=== PATIENT | female | born 1970 | race Hispanic/Latino ===

== ENCOUNTER 2023-01-16 11:49 | Emergency (ER) | payer BC ==
[2023-01-16] MEDS ORDERED: predniSONE 20 MG TAB ONE (13:53)
[2023-01-16] MEDS ORDERED: FAMOTIDINE 20 MG TAB ONE (13:53)
[2023-01-16] MEDS ORDERED: DIPHENHYDRAMINE 25 MG TAB/CAP ONE (13:53)
--- NOTE | 2023-01-16 13:56 | ER ---
Nurse's Notes [facility] Name: Silva Hidalgo Age: 52 yrs Sex: Female : 1970 Arrival Date: 01/16/2023 Time: 11:49 Bed 10 Private MD: Diagnosis: Allergy, unspecified;Other allergy;Allergic contact dermatitis due to other agents Presentation: 01/16 12:14 Chief complaint: Patient states: Right hand swelling/redness along with itching on both [facility] extremities and trunk area since yesterday. Coronavirus screen: Vaccine status: Patient reports receiving the 2nd dose of the covid vaccine. Ebola Screen: Patient denies travel to an Ebola-affected area in the 21 days before illness onset. Initial Sepsis Screen: Does the patient meet any 2 criteria? No. Patient's initial sepsis screen is negative. Does the patient have a suspected source of infection? No. Patient's initial sepsis screen is negative. Risk Assessment: Do you want to hurt yourself or someone else? Patient reports no desire to harm self or others. Onset of symptoms was January 15, 2023. 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 - Social history:: Smoking status: Patient denies any tobacco usage or history of. Screenin:37 [facility] ED Fall Risk Assessment (Adult) History of falling in the last 3 months, mb9 including since admission No falls in past 3 months (0 pts) Confusion or Disorientation No (0 pts) Intoxicated or Sedated No (0 pts) Impaired Gait No (0 pts) Mobility Assist Device Used No (0 pt) Altered Elimination No (0 pt) Score/Fall Risk Level 0 - 2 = Low Risk Oriented to surroundings, Maintained a safe environment, Educated pt \T\ family on fall prevention, incl call for assistance when getting out of bed. Abuse screen: Denies threats or abuse. Nutritional screening: No deficits noted. Tuberculosis screening: No symptoms or risk factors identified. Assessment: 13:35 General: Appears uncomfortable, Behavior is cooperative. Pain: Denies pain. Neuro: mb9 Payne Agitation-Sedation Scale (RASS): 0 - Alert and Calm Level of Consciousness is awake, alert, obeys commands, Oriented to person, place, time, situation, Appropriate for age. Cardiovascular: Heart tones S1 S2 present Patient's skin is warm and dry. Rhythm is regular. Respiratory: Airway is patent Respiratory effort is even, unlabored, Respiratory pattern is regular, symmetrical, Breath sounds are clear bilaterally. Denies shortness of breath. GI: No signs and/or symptoms were reported involving the gastrointestinal system. : No signs and/or symptoms were reported regarding the genitourinary system. EENT: No signs and/or symptoms were reported regarding the EENT system. Derm: Rash noted that is itchy, red, on buttocks, abdomen, right hand, left hand, right arm and left arm. Musculoskeletal: Range of motion: intact in all extremities, Swelling present in right hand. 14:08 Reassessment: Patient and/or family updated on plan of care and expected duration. Pain mb9 level reassessed. Patient is alert, oriented x 3, equal unlabored respirations, skin warm/dry/pink. Patient states feeling better. Patient states symptoms have improved. Vital Signs: 12:14 BP 115 / 85; Pulse 77; Resp 16; Temp 98.6; Pulse Ox 100% ; Weight 63.05 kg; Height 5 nj1 ft. 6 in. ; Pain 7/10; 14:08 BP 116 / 84; Pulse 74; Resp 18; Pulse Ox 100% on R/A; mb9 12:14 Body Mass Index 22.43 (63.05 kg, 167.64 cm) nj1 12:14 Pain Scale: Adult in1 ED Course: 11:52 Patient arrived in ED. mr 12:10 Goran Aguilera MD is Attending Physician. [facility] 12:16 Triage completed. nj1 12:17 Arm band placed on left wrist. nj1 13:34 Brianna Foley RN is Primary Nurse. mb9 13:35 Placed in gown. Bed in low position. Call light in reach. Side rails up X 1. Client mb9 placed on continuous cardiac and pulse oximetry monitoring. NIBP monitoring applied. 14:08 No provider procedures requiring assistance completed. Patient did not have IV access mb9 during this emergency room visit. Administered Medications: 13:51 Drug: diphenhydrAMINE PO 50 mg Route: PO; mb9 13:51 Drug: Famotidine PO 40 mg Route: PO; mb9 13:51 Drug: predniSONE PO 60 mg Route: PO; mb9 Medication: 13:35 VIS not applicable for this client. mb9 Outcome: 13:55 Discharge ordered by . yuliana 14:09 Discharged to home ambulatory. mb9 14:09 Condition: stable 14:09 Discharge instructions given to patient, Instructed on discharge instructions, follow up and referral plans. Demonstrated understanding of instructions, follow-up care, medications, Prescriptions given X 3. 14:09 Patient left the ED. mb9 Signatures: Goran Aguilera MD MD cha Rivera, Mary mr Foley, Brianna Angel, RN RN mb9 Gwen El RN RN nj1
--- NOTE | 2023-01-16 13:56 | EDPHYS ---
Physician Documentation [facility] Name: Silva Hidalgo Age: 52 yrs Sex: Female : 1970 Arrival Date: 01/16/2023 Time: 11:49 Bed 10 Private MD: ROYA Physician Goran Aguilera HPI: 01/16 13:48 This 52 yrs old Female presents to ER via Ambulatory with complaints of Hand yuliana Swelling. 13:48 The patient or guardian reports pain, a rash, erythematous, raised. The complaints yuliana affect the left hand diffusely, right hand diffusely. Context: The problem was sustained at work. Onset: The symptoms/episode began/occurred just prior to arrival. Modifying factors: The symptoms are alleviated by nothing, the symptoms are aggravated by nothing. Associated signs and symptoms: The patient has no apparent associated signs or symptoms. Severity of symptoms: At their worst the symptoms were mild, moderate, in the emergency department the symptoms are unchanged. The patient has not experienced similar symptoms in the past. 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 - Social history:: Smoking status: Patient denies any tobacco usage or history of. ROS: 13:49 Constitutional: Negative for fever, chills, and weight loss, Eyes: Negative for injury, yuliana pain, redness, and discharge, ENT: Negative for injury, pain, and discharge, Neck: Negative for injury, pain, and swelling, Cardiovascular: Negative for chest pain, palpitations, and edema, Respiratory: Negative for shortness of breath, cough, wheezing, and pleuritic chest pain, Abdomen/GI: Negative for abdominal pain, nausea, vomiting, diarrhea, and constipation, Back: Negative for injury and pain, : Negative for injury, bleeding, discharge, and swelling, MS/Extremity: Negative for injury and deformity, Neuro: Negative for headache, weakness, numbness, tingling, and seizure, Psych: Negative for depression, anxiety, suicide ideation, homicidal ideation, and hallucinations, Allergy/Immunology: Negative for hives, rash, and allergies, Endocrine: Negative for neck swelling, polydipsia, polyuria, polyphagia, and marked weight changes, Hematologic/Lymphatic: Negative for swollen nodes, abnormal bleeding, and unusual bruising. 13:49 Skin: Positive for rash, swelling, of the left hand and right hand. Exam: 13:49 Constitutional: This is a well developed, well nourished patient who is awake, alert, yuliana and in no acute distress. Head/Face: Normocephalic, atraumatic. Eyes: Pupils equal round and reactive to light, extra-ocular motions intact. Lids and lashes normal. Conjunctiva and sclera are non-icteric and not injected. Cornea within normal limits. Periorbital areas with no swelling, redness, or edema. ENT: Nares patent. No nasal discharge, no septal abnormalities noted. Tympanic membranes are normal and external auditory canals are clear. Oropharynx with no redness, swelling, or masses, exudates, or evidence of obstruction, uvula midline. Mucous membranes moist. Neck: Trachea midline, no thyromegaly or masses palpated, and no cervical lymphadenopathy. Supple, full range of motion without nuchal rigidity, or vertebral point tenderness. No Meningismus. Chest/axilla: Normal chest wall appearance and motion. Nontender with no deformity. No lesions are appreciated. Cardiovascular: Regular rate and rhythm with a normal S1 and S2. No gallops, murmurs, or rubs. Normal PMI, no JVD. No pulse deficits. Respiratory: Lungs have equal breath sounds bilaterally, clear to auscultation and percussion. No rales, rhonchi or wheezes noted. No increased work of breathing, no retractions or nasal flaring. Abdomen/GI: Soft, non-tender, with normal bowel sounds. No distension or tympany. No guarding or rebound. No evidence of tenderness throughout. Back: No spinal tenderness. No costovertebral tenderness. Full range of motion. Female : Normal external genitalia. MS/ Extremity: Pulses equal, no cyanosis. Neurovascular intact. Full, normal range of motion. Neuro: Awake and alert, GCS 15, oriented to person, place, time, and situation. Cranial nerves II-XII grossly intact. Motor strength 5/5 in all extremities. Sensory grossly intact. Cerebellar exam normal. Normal gait. Psych: Awake, alert, with orientation to person, place and time. Behavior, mood, and affect are within normal limits. 13:49 Skin: rash can be described as erythematous, urticarial. Vital Signs: 12:14 BP 115 / 85; Pulse 77; Resp 16; Temp 98.6; Pulse Ox 100% ; Weight 63.05 kg; Height 5 nj1 ft. 6 in. ; Pain 7/10; 14:08 BP 116 / 84; Pulse 74; Resp 18; Pulse Ox 100% on R/A; mb9 12:14 Body Mass Index 22.43 (63.05 kg, 167.64 cm) nj1 12:14 Pain Scale: Adult nj1 MDM: 12:10 Patient medically screened. yuliana 13:50 Differential diagnosis: allergic reaction. Data reviewed: vital signs, nurses notes. yuliana Consideration of Admission/Observation Escalation of care including admission/observation considered. I considered the following discharge prescriptions or medication management in the emergency department Medications were administered in the Emergency Department. See MAR. Test considered but Not performed: Labs: no labs. Care significantly affected by the following chronic conditions: depression. Counseling: I had a detailed discussion with the patient and/or guardian regarding: the historical points, exam findings, and any diagnostic results supporting the discharge/admit diagnosis, the need for outpatient follow up, for definitive care, a family practitioner. Administered Medications: 13:51 Drug: diphenhydrAMINE PO 50 mg Route: PO; mb9 13:51 Drug: Famotidine PO 40 mg Route: PO; mb9 13:51 Drug: predniSONE PO 60 mg Route: PO; mb9 Disposition Summary: 01/16/23 13:55 Discharge Ordered Location: Home yuliana Problem: new yuliana Symptoms: have improved yuliana Condition: Stable yuliana Diagnosis - Allergy, unspecified yuliana - Other allergy yuliana - Allergic contact dermatitis due to other agents yuliana Followup: yuliana - With: Private Physician - When: 2 - 3 days - Reason: Recheck today's complaints, Continuance of care, Re-evaluation by your physician Discharge Instructions: - Discharge Summary Sheet yuliana - Contact Dermatitis yuliana - Contact Dermatitis, [id number] yuliana Forms: - Medication Reconciliation Form yuliana - Thank You Letter yuliana - Antibiotic Education yuliana - Prescription Opioid Use yuliana - Work release form mb9 Prescriptions: - Benadryl 25 mg Oral Capsule - take 2 capsule by ORAL route every 6 hours As needed; 45 tablet; Refills: 0, [facility] Product Selection Permitted - Pepcid 20 mg Oral Tablet - take 1 tablet by ORAL route every 12 hours for 21 days; 42 tablet; Refills: 0, [facility] Product Selection Permitted - Prednisone 20 mg Oral Tablet - take 2 tablets by ORAL route once daily for 5 days; 10 tablet; Refills: 0, [facility] Product Selection Permitted Signatures: Goran Aguilera MD MD cha Breneman, Mary Beth RN RN mb9 Gwen El RN RN nj1
[2023-01-16 14:45] VITALS: TEMP 98.6; O2SAT 100
[2023-01-16 14:50] VITALS: BP 116/84
== END 2023-01-16 14:09 | disposition home or self-care (01) ==
LOC: ER 11:49
DX: L23.89 Allergic contact dermatitis due to other agents (principal); F32.A Depression, unspecified
CPT/HCPCS: J7512